=== PATIENT | female | born 1955 | race Caucasian/White ===

== ENCOUNTER → 2020-08-01 21:00 | Outpatient (CLI) | payer BC ==
[2014-01-24 06:29] VITALS: BMI 45.5
[~2020-08-01 21:00] MED LIST: HYDROCHLOROTH12.5 M1; NORVASC5 MG
== END | disposition home or self-care (01) ==
LOC: D.MAMMO 15:45
PROVIDERS: ATTEND Family Medicine
DX: Z12.31 Encounter for screening mammogram for malignant neoplasm of breast (principal)